=== PATIENT | female | born 1985 | race Caucasian/White ===

== ENCOUNTER 2016-09-08 08:14 | Emergency (ER) | payer MEDICAID ==
[~2016-09-08] VITALS: Wt 65.0 kg
[~2016-09-08 08:14] MED LIST: PREN1TAB49 PO
--- NOTE | 2016-09-08 09:24 | ERD ---
ER Documentation Chief Complaint Date/Time DATE: 09/08/16 TIME: 09:22 Chief Complaint 6 wks with vag bleed since this morning. mild cramping. no dysuria HPI 31-year-old female who is approximately 6 weeks is complaining of vaginal spotting this morning. She noticed blood while wiping after urination. The blood did not stain her underwear. Patient also reports left pelvic cramping since this morning. Patient is SAB 1 TAB 1, LMP 07/28/2016. Denies fever or chills. Denies dysuria. ROS All systems reviewed and are negative except as per history of present illness. Medications Home Meds Active Scripts Acetaminophen* (Tylophen*) 500 Mg Capsule, 1 CAP PO Q6H Y for PAIN AND OR ELEVATED TEMP, #20 CAP Prov:RAD SHANKS LABEL MAKER 09/08/16 Reported Medications Vits W-Ca,Fe,Fa(<1MG) () 1 Tab Tablet, 1 TAB PO DAILY 05/27/11 Allergies Allergies: Coded Allergies: No Known Allergy (Unverified , 05/27/11) PMhx/Soc History of Surgery: Yes (C SECTION X1) Anesthesia Reaction: No Hx Neurological Disorder: No Hx Respiratory Disorders: No Hx Cardiac Disorders: No Hx Psychiatric Problems: No Hx Miscellaneous Medical Probl: No Hx Alcohol Use: No Hx Substance Use: No Hx Tobacco Use: No Smoking Status: Never smoker Physical Exam Vitals Vital Signs Date Time Temp Pulse Resp B/P Pulse Ox O2 Delivery O2 Flow Rate FiO2 09/08/16 08:16 98.4 98 21 121/68 98 Physical Exam General impression: Well-developed, well-nourished. Alert, oriented, in no acute distress Head: Normocephalic, atraumatic. Neck: Supple, nontender. No lymphadenopathy. No nuchal rigidity. Respiration: Normal respiratory effort. Lungs clear to auscultate bilaterally. No wheezes, rales or rhonchi. Cardiovascular: Regular rate and rhythm. No murmurs or extra heart sounds. Abdomen: Abdomen normal to inspection. Left pelvic tenderness, no rebound or guarding. No masses or organomegaly. Bowel sounds normal. Back: Normal to inspection. No midline spine tenderness. No CVA tenderness. Neuro: Mental status normal, speech normal. BUILDING AND CONSTRUCTION MANAGER grossly intact. Skin: Normal turgor. No rash or lesions. Psych: Normal mood and affect. Result Diagram: 09/08/16 0925 Results 24 hrs Laboratory Tests Test 09/08/16 09:25 Basophils # 0.010^3/ul Basophils % 0.4% Beta HCG, Quantitative 73023.0mIU/ml Eosinophils # 0.010^3/ul Eosinophils % 0.2% Hematocrit 42.4% Hemoglobin 14.5g/dl Lymphocytes # 1.810^3/ul Lymphocytes % 22.5% Mean Corpuscular Hemoglobin 31.5pg Mean Corpuscular Hemoglobin Concent 34.2g/dl Mean Corpuscular Volume 92.0fl Mean Platelet Volume 10.3fl Monocytes # 0.410^3/ul Monocytes % 5.0% Neutrophils # 5.910^3/ul Neutrophils % 71.7% Nucleated Red Blood Cells # 0.010^3/ul Nucleated Red Blood Cells % 0.0/100WBC Platelet Count 20796^3/UL Red Blood Count 4.6110^6/ul Red Cell Distribution Width 12.0% Urine Bilirubin NEGATIVE Urine Clarity CLEAR Urine Color LT. YELLOW Urine Glucose NEGATIVE% Urine Hemoglobin NEGATIVE Urine Ketones NEGATIVE Urine Leukocyte Esterase NEGATIVE Urine Nitrite NEGATIVE Urine Specific [place] 1.010 Urine Total Protein NEGATIVE Urine Urobilinogen 0.2 E.U./dL Urine pH 7.5 White Blood Count 8.210^3/ul Procedures/MDM ED course: CBC: Unremarkable Beta hC.0 UA: Negative Type & RH: O+ OB US: Single intrauterine with an estimated gestational age of 5 weeks and 6 days, based on ultrasound measurements. heart motion is noted, however it could not be measured at this early stage. Focal area of subchorionic hemorrhage. Medical Decision Making: Well-appearing 31-year-old female who is presented ED with vaginal spotting 1 day. Ultrasound showed normal intrauterine with heart motion noted. Gestational age is estimated at 5 weeks and 6 days based on size. Beta hCG quant is consistent with a gestational age. Blood type is O+ , no RhoGam is indicated. Likely her vaginal spotting is secondary to subchorionic hemorrhage noted on ultrasound. Low suspicion for threatened at this time. Patient has OB appointment in 2 weeks. Advised patient to follow-up with her OB sooner than that, however I do not feel that she needs repeat beta hCG in 2 days. I did inform patient to return to ED if she started having copious amount of vaginal bleeding with worsening pelvic pain. Patient appears well, stable for discharge and outpatient management. Medical decision making shared with patient and family. Education provided to patient and family. Patient and family expressed understanding of the plan. Medications on discharge: Tylenol. Follow-up: Primary care provider in 2-3 days or return to ED if worse. RAD SHANKS NP Sep 08, 2016 09:24
[2016-09-08 10:02] LABS: ADD SCAN DIFF NO
[2016-09-08 10:10] LABS: ADD UMIC NO; URINE BILIRUBIN (Dip) NEGATIVE (NEGATIVE); URINE BLOOD (Dip) NEGATIVE (NEGATIVE); URINE COLOR LT. YELLOW (YELLOW); URINE GLUCOSE (Dip) NEGATIVE (NEGATIVE); URINE KETONES (Dip) NEGATIVE (NEGATIVE); URINE LEUKOCYTE ESTERASE (Dip) NEGATIVE (NEGATIVE); URINE NITRITE (Dip) NEGATIVE (NEGATIVE); URINE TOTAL PROTEIN (Dip) NEGATIVE (NEGATIVE); URINE UROBILINOGEN (Dip) 0.2 E.U./dL (0.1-1.0)
--- NOTE | 2016-09-08 10:16 | RADRPT ---
PROCEDURE: US OB. CLINICAL INDICATION: Vaginal spotting TECHNIQUE: Transabdominal and transvaginal views of the pelvis were obtained. COMPARISON: No prior studies are available for comparison. FINDINGS: There is a single intrauterine gestation with a CRL measuring 0.3 cm, corresponding to a gestational age of 5 weeks and 6 days. heart motion is noted, however it could not be measured at this early stage. There is a hypoechoic fluid collection adjacent to the gestational sac, measuring 1.6 cm, consisten t with subchorionic hemorrhage. The right ovary measures 2.8 x 1.9 x 2.2 cm. The left ovary measures 3.5 x 2.7 x 2.6 cm. No ovarian or adnexal mass lesion is seen. There is no free fluid. RPTAT: AA IMPRESSION: Single intrauterine with an estimated gestational age of 5 weeks and 6 days, based on ultr asound measurements. heart motion is noted, however it could not be measured at this early st age. Focal area of subchorionic hemorrhage. Close follow-up is recommended. .Bakari Juárez MD, Date Time Electronically viewed and signed by .Bakari Juárez MD, on 09/08/2016 10:16 .S/
[2016-09-08 10:25] LABS: BASOPHILS % 0.4 % (0.0-2.0); EOSINOPHILS % 0.2 % (0.0-7.0); HEMATOCRIT 42.4 % (37.0-47.0); HEMOGLOBIN 14.5 g/dl (12.0-16.0); LYMPHOCYTES # 1.8 10^3/ul (0.8-2.9); LYMPHOCYTES % 22.5 % (15.0-51.0); MEAN CORPUSCULAR HEMOGLOBIN 31.5 pg (29.0-33.0); MEAN CORPUSCULAR HGB CONC 34.2 g/dl (32.0-37.0); MEAN PLATELET VOLUME 10.3 fl (7.4-10.4); MONOCYTE # 0.4 10^3/ul (0.3-0.9); NEUTROPHIL # 5.9 10^3/ul (1.6-7.5); NEUTROPHILS % 71.7 % (39.0-77.0); PLATELET COUNT 281 10^3/UL (140-415); RED BLOOD COUNT 4.61 10^6/ul (4.20-5.40); WHITE BLOOD COUNT 8.2 10^3/ul (4.8-10.8)
[2016-09-08] MEDS ORDERED: ACET500C5 PO (11:28)
[2016-09-08 11:40] VITALS: BP 128/68; PULSE 78; RESP 20; TEMP 98.2
== END 2016-09-08 11:42 | disposition home or self-care (01) ==
LOC: FTE 08:14
DX: O26.851 Spotting complicating pregnancy, first trimester (principal); R10.2 Pelvic and perineal pain; Z3A.01 Less than 8 weeks gestation of pregnancy
CPT/HCPCS: 36415; 76801; 76817; 81003; 84702; 85025; 86900; 86901; Z7502

== ENCOUNTER 2017-03-18 09:17 | Outpatient (CLI) | payer MEDICAID ==
[~2017-03-18] VITALS: Ht 154.9 cm; Wt 89.3 kg
[~2017-03-18 09:17] MED LIST changes: +ACET500C5 PO
[2017-03-18 09:27] VITALS: Ht 154.9 cm; Wt 89.3 kg
--- NOTE | 2017-03-18 09:31 | RADRPT ---
PROCEDURE: OB ultrasound for biophysical profile CLINICAL INDICATION: Decreased movement TECHNIQUE: Multiple sonographic images of the pelvis were obtained. Transabdominal view of the gr avid uterus are available for review. The images were reviewed on a PACS workstation. COMPARISON: Pelvic ultrasound 09/08/2016 FINDINGS: breathing movement = 2/2 tone = 2/2 motion = 2/2 ASTRID = 2/2 ASTRID = 13.4 cm Single live intrauterine with cardiac activity. heart rate equals 140 beats p er minute. Presentation is transverse maternal left. The placenta is posterior. IMPRESSION: 1. Single viable intrauterine gestation. 2. Biophysical profile = 8/8. 3. ASTRID = 13.3 cm. RPTAT: HJBF .Pal Thomas MD, MD Date Time Electronically viewed and signed by .Pal Thomas MD, MD on 03/18/2017 09:31 .B/
--- NOTE | 2017-03-18 09:49 | HP ---
Date/Time of Note Date/Time of Note DATE: 03/18/17 TIME: 09:46 OB - History Hx of Present Free Text/Dictation 31 year old G2, P 1, previous comes in complaining of decreased movements since last night.Denies contractions or passage of fluid per vagina. Chief Complaint: Decreased movements Estimated Due Date: May 10, 2017 : 2 Para: 1 Care: Good Care Ultrasounds: Normal mid trimester US Obstetrical Complications: None Medical Complications: None (Decreased movements since last night,NST is reactive and BPP is 8/8) Past Family/Social History * Past Medical, Surgical, Family and Obstetric Histories reviewed from chart. ASAEL DOZIER MD Mar 18, 2017 09:49
--- NOTE | 2017-03-18 10:01 | TRIAGE ---
OB Triage Datetime Report Generated by CPN: 03/18/2017 10:01 Datetime: 03/18/2017 09:26 Time of Arrival: 03/18/2017 09:05 EGA: 33.3 Arrived By: Wheelchair Arrived From: Emergency Dept Chief Complaint: Decreased movement Movement: Decreased Contractions: Denies/Absent Rupture of Membranes: Denies Vaginal Bleeding: Normal Show Vaginal Discharge: Denies Recent Sexual Intercouse: Denies Abdominal Trauma: Not Applicable Patient Complaints: None Time Provider Notified: 03/18/2017 09:36 Provider Notified: Fred Initial Plan: NST, BPP Datetime: 03/18/2017 09:25 Assessment Type: Triage Maternal Assessment Level of Consciousness: Fully Conscious DTR's/Clonus: DTRs 2+; No Clonus Headache: Denies Blurred Vision: No Respiratory Effort: Unlabored; Regular Rhythm; Equal Expansion Breath Sounds, Left: Clear and Equal Breath Sounds, Right: Clear and Equal Nausea/Vomiting: Denies RUQ Epigastric Pain: Denies Lower Extremities Edema: Bilateral Lower Extremities Degree: 1+ Upper Extremities Edema: None Degree: None Facial Edema: None Fall Risk Assessment History of Falling: (0) No Secondary Diagnosis: (0) No Ambulatory Aid: (0) Bedrest/Nurse Assist IV Therapy: (0) No Gait: (0) Normal/Bedrest/Immobile Mental Status: (0) Oriented to Own Ability Fall Score: 0 Fall Risk Score Definition: No Risk: No action required
== END 2017-03-18 09:45 | disposition home or self-care (01) ==
LOC: OBT 09:17 → L-D 09:17 → OBT 09:45
PROVIDERS: ATTEND Specialist
DX: O36.8130 Decreased fetal movements, third trimester, not applicable or unspecified (principal); Z3A.33 33 weeks gestation of pregnancy
CPT/HCPCS: 76818; Z7500; G0463

== ENCOUNTER 2017-04-13 19:50 | Outpatient (CLI) | payer MEDICAID ==
[~2017-04-13] VITALS: Ht 154.9 cm; Wt 91.4 kg
[2017-04-13 20:15] VITALS: BP 109/59; PULSE 90; RESP 18; Ht 154.9 cm; Wt 91.4 kg
[2017-04-13] MEDS ORDERED: LACTATED RINGER'S 500 ML IV ONE (20:30)
[2017-04-13] MEDS ORDERED: LACTATED RINGER'S 1,000 ML IV SCH (21:10)
[2017-04-13 22:11] LABS: ADD UMIC NO; UR ASCORBIC ACID NEGATIVE (NEGATIVE); UR BACTERIA FEW /HPF (NONE SEEN); UR BILIRUBIN (Dip) NEGATIVE (NEGATIVE); UR BLOOD (Dip) NEGATIVE (NEGATIVE); UR CLARITY SLIGHTLY CLOUDY (CLEAR); UR COLOR YELLOW (YELLOW); UR GLUCOSE (Dip) NEGATIVE (NEGATIVE); UR KETONES (Dip) TRACE mg/dL (NEGATIVE); UR LEUKOCYTE ESTERASE (Dip) NEGATIVE Leu/ul (NEGATIVE); UR MUCUS FEW /HPF (NONE SEEN); UR NITRITE (Dip) NEGATIVE (NEGATIVE); UR RBC 1 /HPF (0-5); UR SPECIFIC GRAVITY (Dip) 1.018 (1.003-1.030); UR SQUAMOUS EPITHELIAL CELL FEW /HPF (FEW); UR TOTAL PROTEIN (Dip) NEGATIVE (NEGATIVE); UR UROBILINOGEN (Dip) 1+ mg/dL (NEGATIVE)
--- NOTE | 2017-04-13 22:22 | RADRPT ---
PROCEDURE: US biophysical profile. CLINICAL INDICATION: Decreased motion. TECHNIQUE: Multiple sonographic images of the uterus were obtained. The images were revi ewed on a PACS workstation. COMPARISON: 03/18/2017. FINDINGS: There is a single live intrauterine gestation. heart rate is 144 beats per minute. The position is cephalic. The placenta is posterior grade II with no abruption or previa. The ASTRID is 16.8 cm. (Normal = 5-20 cm.) Incidental note is made of mild left hydronephrosis. Breathing Movement: 2 Gross Body Movement: 2 Tone: 2 Qualitative Amniotic Fluid Volume: 2 TOTAL: 8 IMPRESSION: 1. The biophysical score is 8/8. 2. Mild left hydronephrosis. Follow-up advised. RPTAT: QQ .Lobo Cabrera MD, MD Date Time Electronically viewed and signed by .Lobo Cabrera MD, on 04/13/2017 22:22 .R/
[2017-04-13] MEDS ORDERED: TERBUTALINE 1 MG/ML INJ SC PRN (23:30)
--- NOTE | 2017-04-14 00:51 | TRIAGE ---
OB Triage Datetime Report Generated by CPN: 04/14/2017 00:51 Datetime: 04/14/2017 00:47 Stage of : OB Triage Datetime: 04/14/2017 00:00 Labor Evaluation Frequency: irregular Monitor Mode: External Duration (sec)2399: 50-120 Quality: Mild Pattern: Normal: <= 5 Contractions in 10 Minutes Resting Tone [place]: Relaxed Heart Rate FHR Baseline Rate: 120 Monitor Mode: External US FHR Baseline Changes: No Baseline Change Variability: Moderate 6-25 bpm Accelerations: 15X15 Decelerations: None Category: Category I Pain Assessment Pain Scale: 5 Pain Presence: Intermittent Pain Type: Contraction Pain Location: Abdomen Pain Relief Measures: Comfort Measures Datetime: 04/13/2017 23:00 Labor Evaluation Frequency: irregular Monitor Mode: External Duration (sec)2399: 50-100 Quality: Mild Pattern: Normal: <= 5 Contractions in 10 Minutes Resting Tone [place]: Relaxed Heart Rate FHR Baseline Rate: 120 Monitor Mode: External US FHR Baseline Changes: No Baseline Change Variability: Moderate 6-25 bpm Accelerations: 15X15 Decelerations: None Category: Category I Datetime: 04/13/2017 22:47 Pain Assessment Pain Scale: 6 Pain Presence: Intermittent Pain Type: Contraction Pain Location: Abdomen Pain Relief Measures: Comfort Measures Vaginal Exam Dilatation (cms): 0.0 Effacement (%): 30 Station: -3 Exam By: fdc Datetime: 04/13/2017 21:35 Labor Evaluation Frequency: 3-6 Monitor Mode: External Duration (sec)2399: 60-120 Quality: Mild Pattern: Normal: <= 5 Contractions in 10 Minutes Resting Tone [place]: Relaxed Heart Rate FHR Baseline Rate: 135 Monitor Mode: External US FHR Baseline Changes: No Baseline Change Variability: Moderate 6-25 bpm Accelerations: 15X15 Decelerations: Variable Category: Category II Datetime: 04/13/2017 21:00 Labor Evaluation Frequency: 2.5-5 Monitor Mode: External Duration (sec)2399: 70-120 Quality: Mild Pattern: Normal: <= 5 Contractions in 10 Minutes Resting Tone [place]: Relaxed Heart Rate FHR Baseline Rate: 120 Monitor Mode: External US FHR Baseline Changes: No Baseline Change Variability: Moderate 6-25 bpm Accelerations: 15X15 Decelerations: Variable Category: Category II Datetime: 04/13/2017 20:10 Vaginal Exam Dilatation (cms): 0.0 Effacement (%): 30 Station: -3 Exam By: CORRECTION Membrane Status: Intact Datetime: 04/13/2017 20:03 Assessment Type: Triage Maternal Assessment Level of Consciousness: Fully Conscious Headache: Denies Blurred Vision: No Respiratory Effort: Unlabored; Regular Rhythm; Equal Expansion Nausea/Vomiting: Denies RUQ Epigastric Pain: Denies Facial Edema: None Fall Risk Assessment History of Falling: (0) No Secondary Diagnosis: (0) No Ambulatory Aid: (0) Bedrest/Nurse Assist IV Therapy: (0) No Gait: (0) Normal/Bedrest/Immobile Mental Status: (0) Oriented to Own Ability Fall Score: 0 Fall Risk Score Definition: No Risk: No action required Datetime: 04/13/2017 20:00 Temperature Route: Oral Pain Assessment Pain Scale: 4 Pain Presence: Intermittent Pain Type: Contraction Pain Location: Abdomen Pain Relief Measures: Comfort Measures Datetime: 04/13/2017 19:57 Monitor Mode: External Heart Rate FHR Baseline Rate: 120 Monitor Mode: External US Comments: US APPLIED Datetime: 04/13/2017 19:54 Time of Arrival: 04/13/2017 19:49 EGA: 37.1 Arrived By: Ambulatory Arrived From: Home Chief Complaint: PAIN, VAGINAL PRESSURE, DECREASED MOVEMENT, UCS Movement: Decreased Contractions: Regular Contractions: 3-5 Rupture of Membranes: Denies Vaginal Bleeding: None Vaginal Discharge: Denies Recent Sexual Intercouse: Denies Abdominal Trauma: Not Applicable Patient Complaints: Contractions; Back Pain Time Provider Notified: 04/13/2017 20:23 Provider Notified: ELSY Initial Plan: VS, EFM, SVE, IV HYDRATION, BPP WITH ASTRID, UA, TERB Datetime: 03/18/2017 09:38 Monitor Mode: External Resting Tone [place]: Relaxed Heart Rate FHR Baseline Rate: 135 Monitor Mode: External US FHR Baseline Changes: No Baseline Change Variability: Moderate 6-25 bpm Accelerations: 15X15 Decelerations: None Category: Category I Datetime: 03/18/2017 09:26 EGA: 33.3 Datetime: 03/18/2017 09:25 Fall Score: 0 Fall Risk Score Definition: No Risk: No action required Datetime: 03/18/2017 09:15 Stage of : OB Triage Temperature Route: Oral
--- NOTE | 2017-04-14 03:52 | PN ---
Triage Information Date/Time April 13, 2017 Reason for visit: DFM Weeks of Gestation 37 weeks and 1 day /Para 4 para 1 Diabetes: none Hypertention: none Additional information 31-year-old with IUP at 37 weeks and 1 day presented with a complaint of decreased movement and was noted to have some uterine contractions. She denied any vaginal bleeding. Had a history of 1. Cervix was closed and long. Objective Vital Signs Date Time Temp Pulse Resp B/P Pulse Ox O2 Delivery O2 Flow Rate FiO2 04/13/17 20:15 97.8 90 18 109/59 Room Air Intake and Output 04/13/17 04/13/17 04/14/17 15:00 23:00 07:00 Intake Total 500 ml 1000 ml Output Total 200 ml Balance 500 ml 800 ml Heart Rate: 130's Contractions: < 5 Minutes Apart Exam General appearance: Alert and oriented 4. Patient appears to be in mild distress. Abdomen: Soft, gravid, fundal height consistent with gestational age NST: Category 1 Contractions every 4-5 minutes. Resolved with terbutaline and IV hydration Cervical exam closed and long and high intact Results/Medications Results 24 hrs Laboratory Tests Test 04/13/17 21:25 Urine Color YELLOW Urine Clarity SLIGHTLY CLOUDY A Urine pH 6.0 Urine Specific [place] 1.018 Urine Ketones TRACE A Urine Nitrite NEGATIVE Urine Bilirubin NEGATIVE Urine Urobilinogen 1+ H Urine Leukocyte Esterase NEGATIVE Urine Microscopic RBC 1 Urine Microscopic WBC 3 Urine Squamous Epithelial Cells FEW Urine Calcium Oxalate Crystals FEW A Urine Bacteria FEW A Urine Mucus FEW A Urine Hemoglobin NEGATIVE Urine Glucose NEGATIVE Urine Total Protein NEGATIVE Imaging Results PROCEDURE: US biophysical profile. CLINICAL INDICATION: Decreased motion. TECHNIQUE: Multiple sonographic images of the uterus were obtained. The images were reviewed on a PACS workstation. COMPARISON: 03/18/2017. FINDINGS: There is a single live intrauterine gestation. heart rate is 144 beats per minute. The position is cephalic. The placenta is posterior grade II with no abruption or previa. The ASTRID is 16.8 cm. (Normal = 5-20 cm.) Incidental note is made of mild left hydronephrosis. Breathing Movement: 2 Gross Body Movement: 2 Tone: 2 Qualitative Amniotic Fluid Volume: 2 TOTAL: 8 IMPRESSION: 1. The biophysical score is 8/8. 2. Mild left hydronephrosis. Follow-up advised. RPTAT: QQ Disposition: Discharge Assessment/Plan IUP at 37 weeks Decreased movement Anesthesia/pain. Shortening History of 1 False labor pain Resolved with IV hydration and terbutaline Patient felt significant improvement of her symptoms Will be discharged home with a follow-up within 24-48 hours with her primary OB HERMES BRISCOE MD Apr 14, 2017 03:52
== END 2017-04-14 01:25 | disposition home or self-care (01) ==
LOC: OBT 19:50 → L-D 19:52 → OBT 04-14 01:25
PROVIDERS: ATTEND Specialist
DX: O36.8130 Decreased fetal movements, third trimester, not applicable or unspecified (principal); O34.219 Maternal care for unspecified type scar from previous cesarean delivery; Z3A.37 37 weeks gestation of pregnancy
CPT/HCPCS: 76818; 81001; J3105; J7120; Z7500; 81003; G0463

== ENCOUNTER 2017-04-26 05:52 | Inpatient (IN) | payer MEDICAID ==
[2017-04-26] VITALS: BP 101/51; PULSE 89; RESP 18
--- NOTE | 2017-04-26 02:47 | PREOPHP ---
DATE OF ADMISSION: 04/26/2017 REASON FOR ADMISSION: The patient is to be admitted tomorrow for repeat at term. HISTORY OF PRESENT ILLNESS: This is a 31-year-old female, 4, para 1 with a history of previ ous section whose EDC has been confirmed by ultrasounds to be 05/03/2017, who was admitted for a repeat at term. She also desires sterilization during the same procedure. Both pro cedures were carefully explained to the patient at great length in the office including alternatives , benefits, risks, and possible complications as well as 1% failure rate of the tubal ligation. She was allowed to ask questions and all of her questions were answered to her satisfaction, and she si gned the appropriate surgical informed consents. PAST MEDICAL HISTORY: The patient has been 4 times. Her first was a miscarriage in 2014, spontaneous . In 2014, she had a termination for conjoined twins. In 2005, the p scarlet had an only child that was born at 42 weeks, a baby boy that weighed 9 pounds 15 ounces to [facility] by section. She denies any medical problems including diabetes, hypertension, cardiac disease, liver disease, thyroid disease, or neurological problems. ALLERGIES: NO KNOWN ALLERGIES. MEDICATIONS: Has been taking only vitamins on a regular basis. FAMILY HISTORY: Noncontributory. REVIEW OF SYSTEMS: A 12-point review of systems is noncontributory. PHYSICAL EXAMINATION: GENERAL: Well-developed and nourished. Height is 5 feet 1 inch weight is 205 pounds. VITAL SIGNS: Showed the temperature to be 98, blood pressure 111/65, pulse is 80/minute (regular). Temperature is 98 degrees. HEENT: Within normal limits. Pupils are PERRLA. NECK: Supple. The thyroid is not palpable. No lymphadenopathy. LUNGS: Clear to percussion and auscultation. HEART: Revealed normal sinus rhythm without murmur. ABDOMEN: Soft. There are no megalies or hernias. Uterus enlarged up to 37 cm above the pubic bone , single baby, longitudinal lie, cephalic presentation. heart rate is category 1. PELVIC: Normal external genitalia. Cervix is long and closed. Membranes are intact. EXTREMITIES: Within normal limits. NEUROLOGIC: Also normal. IMPRESSION: 1. Term intrauterine . 2. Previous section. 3. Multiparity. The patient desires sterilization. Dictated By: ASAEL DOZEIR MD CR/DANTE Conf#: [id number] DID#: [id number] CC: ELSY TOTH MD;*End*
--- NOTE | 2017-04-26 02:47 | PREOPHP ---
DATE OF ADMISSION: 04/26/2017 REASON FOR ADMISSION: The patient is to be admitted tomorrow for repeat at term. HISTORY OF PRESENT ILLNESS: This is a 31-year-old female, 4, para 1 with a history of previ ous section whose EDC has been confirmed by ultrasounds to be 05/03/2017, who was admitted for a repeat at term. She also desires sterilization during the same procedure. Both pro cedures were carefully explained to the patient at great length in the office including alternatives , benefits, risks, and possible complications as well as 1% failure rate of the tubal ligation. She was allowed to ask questions and all of her questions were answered to her satisfaction, and she si gned the appropriate surgical informed consents. PAST MEDICAL HISTORY: The patient has been 4 times. Her first was a miscarriage in 2014, spontaneous . In 2014, she had a termination for conjoined twins. In 2005, the p scarlet had an only child that was born at 42 weeks, a baby boy that weighed 9 pounds 15 ounces to [facility] by section. She denies any medical problems including diabetes, hypertension, cardiac disease, liver disease, thyroid disease, or neurological problems. ALLERGIES: NO KNOWN ALLERGIES. MEDICATIONS: Has been taking only vitamins on a regular basis. FAMILY HISTORY: Noncontributory. REVIEW OF SYSTEMS: A 12-point review of systems is noncontributory. PHYSICAL EXAMINATION: GENERAL: Well-developed and nourished. Height is 5 feet 1 inch weight is 205 pounds. VITAL SIGNS: Showed the temperature to be 98, blood pressure 111/65, pulse is 80/minute (regular). Temperature is 98 degrees. HEENT: Within normal limits. Pupils are PERRLA. NECK: Supple. The thyroid is not palpable. No lymphadenopathy. LUNGS: Clear to percussion and auscultation. HEART: Revealed normal sinus rhythm without murmur. ABDOMEN: Soft. There are no megalies or hernias. Uterus enlarged up to 37 cm above the pubic bone , single baby, longitudinal lie, cephalic presentation. heart rate is category 1. PELVIC: Normal external genitalia. Cervix is long and closed. Membranes are intact. EXTREMITIES: Within normal limits. NEUROLOGIC: Also normal. IMPRESSION: 1. Term intrauterine . 2. Previous section. 3. Multiparity. The patient desires sterilization. Dictated By: ASAEL DOZIER MD CR/DANTE Conf#: [id number] DID#: [id number] CC: ELSY TOTH MD;*End*
[~2017-04-26 05:52] MED LIST changes: -ACET500C5 PO
[2017-04-26 06:12] VITALS: BP 119/64; PULSE 96; RESP 18
[2017-04-26] MEDS ORDERED: OXYTOCIN 30 UNITS/LR 500 ML IV SCH (06:30)
[2017-04-26] MEDS ORDERED: MISOPROSTOL 200 MCG TAB PR PRN ×2 (06:30→09:30)
[2017-04-26] MEDS ORDERED: CARBOPROST 250 MCG INJ IM PRN ×2 (06:30→09:30)
[2017-04-26] MEDS ORDERED: OXYTOCIN 30 UNITS/LR 500 ML IV PRN ×2 (06:30→09:30)
[2017-04-26] MEDS ORDERED: CEFAZOLIN 2 GM/50 ML (PMX) 50 ML IV SCH (06:30)
[2017-04-26] MEDS ORDERED: METHYLERGONOVINE 0.2 MG INJ IM PRN ×2 (06:30→09:30)
[2017-04-26] MEDS: LACTATED RINGER'S 1,000 ML IV SCH ×4 (06:49→20:14)
[2017-04-26] MEDS ORDERED: morphine SULFATE/PF (10 MG/10 ML) INJ ONE (08:16)
[2017-04-26] MEDS ORDERED: FENTAnyl 50 MCG/ML VIAL ONE (08:17)
[2017-04-26] MEDS ORDERED: PHENYLephrine (100 MCG/ML) 5ML SYG ONE (08:26)
[2017-04-26] MEDS ORDERED: DEXAMETHASONE 4 MG/ML 1 ML INJ ONE (08:32)
[2017-04-26] MEDS ORDERED: ONDANSETRON 4 MG INJ ONE (08:58)
[2017-04-26] MEDS ORDERED: morphine 4 MG/ML VIAL IV PRN (09:30)
[2017-04-26] MEDS ORDERED: CEFAZOLIN 2 GM/50 ML (PMX) 50 ML IVPB SCH (09:30)
[2017-04-26] MEDS ORDERED: ONDANSETRON 4 MG INJ IV PRN (09:30)
[2017-04-26] MEDS ORDERED: KETOROLAC 30 MG INJ IV PRN (09:30)
[2017-04-26] MEDS ORDERED: NALOXONE (0.4 MG/ML) INJ IV PRN (09:30)
[2017-04-26] MEDS ORDERED: LANOLIN 7 GM TUBE TOP PRN (09:30)
[2017-04-26] MEDS ORDERED: HYDROCODONE/APAP (5/325) TAB PO PRN (09:30)
[2017-04-26] MEDS ORDERED: DIPHENHYDRAMINE 50 MG INJ IV PRN (09:30)
[2017-04-26] MEDS ORDERED: ZOLPIDEM 5 MG TAB PO PRN (09:30)
[2017-04-26] MEDS ORDERED: morphine 2 MG INJ IV PRN (09:30)
--- NOTE | 2017-04-26 09:32 | SIPON ---
Date/Time of Note Date/Time of Note See dictated note DATE: 04/26/17 TIME: 09:29 Operative Report Preoperative Diagnosis 39 weeks gestation.Previous .Multiparity Postoperative Diagnosis Same. Operation/Procedure Performed Repeat and BTL. Surgeon Dr.Carlos Kevin Ibarra tutoring assistant MD Mary Anesthesia: spinal Estimated blood loss: other Transfusion Required none Specimen Portion of fallopian tubes. Grafts/Implants none Complications none ASAEL IBARRA MD Apr 26, 2017 09:32
--- NOTE | 2017-04-26 09:32 | SIPON ---
Date/Time of Note Date/Time of Note See dictated note DATE: 04/26/17 TIME: 09:29 Operative Report Preoperative Diagnosis 39 weeks gestation.Previous .Multiparity Postoperative Diagnosis Same. Operation/Procedure Performed Repeat and BTL. Surgeon Dr.Carlos Kevin Ibarra optical assistant MD Mary Anesthesia: spinal Estimated blood loss: other Transfusion Required none Specimen Portion of fallopian tubes. Grafts/Implants none Complications none ASAEL IBARRA MD Apr 26, 2017 09:32
--- NOTE | 2017-04-26 09:32 | SIPON ---
Date/Time of Note Date/Time of Note See dictated note DATE: 04/26/17 TIME: 09:29 Operative Report Preoperative Diagnosis 39 weeks gestation.Previous .Multiparity Postoperative Diagnosis Same. Operation/Procedure Performed Repeat and BTL. Surgeon Dr.Carlos Kevin Ibarra diagnostic assistant MD Mary Anesthesia: spinal Estimated blood loss: other Transfusion Required none Specimen Portion of fallopian tubes. Grafts/Implants none Complications none ASAEL IBARRA MD Apr 26, 2017 09:32
--- NOTE | 2017-04-26 09:57 | OPR ---
DATE OF OPERATION: 04/26/2017 PREOPERATIVE DIAGNOSES: 1. Thirty-nine weeks' gestation. 2. Previous section x1. 3. The patient desires sterilization. 4. Baby was also breech. POSTOPERATIVE DIAGNOSES: 1. Thirty-nine weeks' gestation. 2. Previous section x1. 3. The patient desires sterilization. 4. Baby was also breech. FINDINGS: Baby boy, Apgars scores of 9 and 9. PROCEDURE: Repeat low segment transverse section and bilateral tubal ligation. SURGEON: Asael Ibarra MD. FULL STACK SOFTWARE DEVELOPER: Ashanti Mcdonald MD. ANESTHESIOLOGIST: eva Mei. ESTIMATED BLOOD LOSS: 800 mL. COMPLICATIONS: None. SPECIMENS: Portions of the fallopian tubes were sent to pathology. PROCEDURE AND FINDINGS: With the patient under spinal anesthesia, lying on the table in the dorsal recumbent position, tilted to the left side. She had a Arredondo catheter draining her bladder. Her ab domen and upper thighs were prepped with ChloraPrep and draped in the usual sterile fashion after 3 minutes. A Pfannenstiel incision was carried through all layers of abdominal wall with ease. Once in the abdomen, the uterine segment was opened transversely and a living male child was delivered fr om double footling breech presentation. Baby was handed to the respiratory team instructional paraprofessional who found h im to have scores of 9 at first minute and 9 at five minutes. Sample cord blood was obtained. The placenta was delivered. The uterine cavity cleaned with a clean moist laparotomy pad. Incisi on of the uterus was closed with a continuous running stitch of 0 PDS in a double layer fashion. Go od hemostasis obtained. The tubal ligation was carried out starting on the right side, picking the tube in its mid portion with a [place] clamp and tying it on its base twice with 0 plain catgut. A portion of tube was cut and sent to pathology. The same was repeated on the lateral side. The pelv is was thoroughly cleaned with clean moist laparotomy pads. The operative sites were checked for bl eeders, there were none. Then, the abdomen was closed in layers starting with the muscles in the mi dline approximated with 2-0 chromic catgut. The fascia was closed with a continuous running stitch of 0 Vicryl. Finally, the edges of the skin were brought together with subcuticular 4-0 Monocryl. Sterile pressure dressing was applied and the patient was taken to recovery room with all vital sign s stable. EBL was 800 mL of blood. Needle, sponge and instrument count at the end of the procedure was correct twice. Dictated By: ASAEL IBARRA MD CR/NTS Conf#: [id number] DID#: [id number] CC: ASHANTI MCDONALD MD;*EndCC*
--- NOTE | 2017-04-26 09:57 | OPR ---
DATE OF OPERATION: 04/26/2017 PREOPERATIVE DIAGNOSES: 1. Thirty-nine weeks' gestation. 2. Previous section x1. 3. The patient desires sterilization. 4. Baby was also breech. POSTOPERATIVE DIAGNOSES: 1. Thirty-nine weeks' gestation. 2. Previous section x1. 3. The patient desires sterilization. 4. Baby was also breech. FINDINGS: Baby boy, Apgars scores of 9 and 9. PROCEDURE: Repeat low segment transverse section and bilateral tubal ligation. SURGEON: Asael Ibarra MD. PAYROLL LEAD: Ashanti Mcdonald MD. ANESTHESIOLOGIST: eva Mei. ESTIMATED BLOOD LOSS: 800 mL. COMPLICATIONS: None. SPECIMENS: Portions of the fallopian tubes were sent to pathology. PROCEDURE AND FINDINGS: With the patient under spinal anesthesia, lying on the table in the dorsal recumbent position, tilted to the left side. She had a Arredondo catheter draining her bladder. Her ab domen and upper thighs were prepped with ChloraPrep and draped in the usual sterile fashion after 3 minutes. A Pfannenstiel incision was carried through all layers of abdominal wall with ease. Once in the abdomen, the uterine segment was opened transversely and a living male child was delivered fr om double footling breech presentation. Baby was handed to the respiratory team store operations associate who found h im to have scores of 9 at first minute and 9 at five minutes. Sample cord blood was obtained. The placenta was delivered. The uterine cavity cleaned with a clean moist laparotomy pad. Incisi on of the uterus was closed with a continuous running stitch of 0 PDS in a double layer fashion. Go od hemostasis obtained. The tubal ligation was carried out starting on the right side, picking the tube in its mid portion with a [place] clamp and tying it on its base twice with 0 plain catgut. A portion of tube was cut and sent to pathology. The same was repeated on the lateral side. The pelv is was thoroughly cleaned with clean moist laparotomy pads. The operative sites were checked for bl eeders, there were none. Then, the abdomen was closed in layers starting with the muscles in the mi dline approximated with 2-0 chromic catgut. The fascia was closed with a continuous running stitch of 0 Vicryl. Finally, the edges of the skin were brought together with subcuticular 4-0 Monocryl. Sterile pressure dressing was applied and the patient was taken to recovery room with all vital sign s stable. EBL was 800 mL of blood. Needle, sponge and instrument count at the end of the procedure was correct twice. Dictated By: ASAEL IBARRA MD CR/NTS Conf#: [id number] DID#: [id number] CC: ASHANTI MCDONALD MD;*EndCC*
--- NOTE | 2017-04-26 09:57 | OPR ---
DATE OF OPERATION: 04/26/2017 PREOPERATIVE DIAGNOSES: 1. Thirty-nine weeks' gestation. 2. Previous section x1. 3. The patient desires sterilization. 4. Baby was also breech. POSTOPERATIVE DIAGNOSES: 1. Thirty-nine weeks' gestation. 2. Previous section x1. 3. The patient desires sterilization. 4. Baby was also breech. FINDINGS: Baby boy, Apgars scores of 9 and 9. PROCEDURE: Repeat low segment transverse section and bilateral tubal ligation. SURGEON: Asael Ibarra MD. BOX BUILDER: Ashanti Mcdonald MD. ANESTHESIOLOGIST: eva Mei. ESTIMATED BLOOD LOSS: 800 mL. COMPLICATIONS: None. SPECIMENS: Portions of the fallopian tubes were sent to pathology. PROCEDURE AND FINDINGS: With the patient under spinal anesthesia, lying on the table in the dorsal recumbent position, tilted to the left side. She had a Arredondo catheter draining her bladder. Her ab domen and upper thighs were prepped with ChloraPrep and draped in the usual sterile fashion after 3 minutes. A Pfannenstiel incision was carried through all layers of abdominal wall with ease. Once in the abdomen, the uterine segment was opened transversely and a living male child was delivered fr om double footling breech presentation. Baby was handed to the respiratory team assistant education director who found h im to have scores of 9 at first minute and 9 at five minutes. Sample cord blood was obtained. The placenta was delivered. The uterine cavity cleaned with a clean moist laparotomy pad. Incisi on of the uterus was closed with a continuous running stitch of 0 PDS in a double layer fashion. Go od hemostasis obtained. The tubal ligation was carried out starting on the right side, picking the tube in its mid portion with a [place] clamp and tying it on its base twice with 0 plain catgut. A portion of tube was cut and sent to pathology. The same was repeated on the lateral side. The pelv is was thoroughly cleaned with clean moist laparotomy pads. The operative sites were checked for bl eeders, there were none. Then, the abdomen was closed in layers starting with the muscles in the mi dline approximated with 2-0 chromic catgut. The fascia was closed with a continuous running stitch of 0 Vicryl. Finally, the edges of the skin were brought together with subcuticular 4-0 Monocryl. Sterile pressure dressing was applied and the patient was taken to recovery room with all vital sign s stable. EBL was 800 mL of blood. Needle, sponge and instrument count at the end of the procedure was correct twice. Dictated By: ASAEL IBARRA MD CR/NTS Conf#: [id number] DID#: [id number] CC: ASHANTI MCDONALD MD;*EndCC*
[2017-04-26 12:20] VITALS: BP 121/65; PULSE 86; RESP 17
[2017-04-26] MEDS: IBUPROFEN 800 MG TAB PO SCH ×2 (14:00→22:00)
[2017-04-26 16:00] VITALS: BP 113/53; PULSE 96; RESP 17
[2017-04-26] MEDS: CEFAZOLIN 2 GM/50 ML (PMX) 50 ML IVPB SCH ×2 (17:11→23:32)
[2017-04-26 20:00] VITALS: BP 105/53; PULSE 97; RESP 18
[2017-04-26] MEDS: SENNA/DOCUSATE NA (8.6MG/50MG) TAB PO SCH (21:06)
[2017-04-27 04:00] VITALS: BP 111/56; PULSE 97; RESP 18
[2017-04-27] MEDS: LACTATED RINGER'S 1,000 ML IV SCH ×3 (05:04→17:26)
[2017-04-27] MEDS: IBUPROFEN 800 MG TAB PO SCH ×3 (06:00→21:19)
[2017-04-27] MEDS: CEFAZOLIN 2 GM/50 ML (PMX) 50 ML IVPB SCH (07:53)
[2017-04-27 07:55] VITALS: BP 103/57; PULSE 86; RESP 18
--- NOTE | 2017-04-27 08:31 | PN ---
Date/Time of Note Date/Time of Note DATE: 04/27/17 TIME: 08:28 OB Subjective Subjective Subjective Doing well,sitting up nursing.Good pain control. OB Objective Objective Objective Afebrile,normal BP.Good output.CBC pending. Lochia normal.Abdomen soft,dressing intact. HEENT: WNL Heart: Rhythm Normal Lungs: Clear, Equal Abdomen: WNL Extremities: Normal ASAEL DOZIER MD Apr 27, 2017 08:31
[2017-04-27] MEDS: SENNA/DOCUSATE NA (8.6MG/50MG) TAB PO SCH ×2 (09:28→21:19)
[2017-04-27 16:25] VITALS: BP 110/58; PULSE 85; RESP 18
[2017-04-27 20:17] VITALS: BP 94/52; PULSE 87; RESP 18
[2017-04-28 04:00] VITALS: BP 97/56; PULSE 80; RESP 18
[2017-04-28] MEDS: IBUPROFEN 800 MG TAB PO SCH ×3 (05:18→20:20)
--- NOTE | 2017-04-28 08:41 | PN ---
Date/Time of Note Date/Time of Note DATE: 04/28/17 TIME: 08:37 OB Subjective Subjective Subjective Doing well,ambulatory.Passes gases. OB Objective Objective Objective Lochia normal.Shower yesterday.Incision healing well HEENT: WNL Heart: Rhythm Normal Lungs: Clear Abdomen: WNL Extremities: Normal ASAEL DOZIER MD Apr 28, 2017 08:41
[2017-04-28 08:45] VITALS: BP 113/59; RESP 82
[2017-04-28] MEDS ORDERED: MEASLES,MUMPS,RUBELLA VACCINE INJ SC* ONE (09:00)
[2017-04-28] MEDS: SENNA/DOCUSATE NA (8.6MG/50MG) TAB PO SCH ×2 (09:16→20:39)
[2017-04-28] MEDS: HYDROCODONE/APAP (5/325) TAB PO PRN ×2 (12:10→22:06)
[2017-04-28 16:25] VITALS: BP 106/67; PULSE 87; RESP 18
[2017-04-28 19:45] VITALS: BP 113/61; PULSE 86; RESP 18
[2017-04-29 04:00] VITALS: BP 116/68; PULSE 80; RESP 18
[2017-04-29] MEDS: IBUPROFEN 800 MG TAB PO SCH (06:00)
--- NOTE | 2017-04-29 08:06 | PD.PPDC ---
DEV TECHNICAL MGR Discharge Instruction Diagnosis Final Diagnosis: 39 weeks gestation Previous Multiparity Condition Patient Condition: Good Diet Diet: Resume Regular Diet Activity/Restrictions Activity: Normal Activity May Shower Restrictions: No Exercising No Lifting No Sexual Activity Nothing in the Vagina No [place] Wound/Drain Care Instructions Wound/Drain Care Instructions: Keep clean and dry Follow-up Follow-up with Physician: 1, Week/Weeks Return to clinic for FINGERNAIL SCULPTURER Instructions: Fever greater than 101 Worsening abdominal pain Excessive Vaginal Bleeding Unable to tolerate diet OB Instructions: Depression Surgical Instructions: Incisional Drainage Incisional Redness (Shower and wash hair as usual.) ASAEL DOZIER MD Apr 29, 2017 08:06
--- NOTE | 2017-04-29 08:06 | PD.PPDC ---
HEALTH ADMINISTRATION TEACHER Discharge Instruction Diagnosis Final Diagnosis: 39 weeks gestation Previous Multiparity Condition Patient Condition: Good Diet Diet: Resume Regular Diet Activity/Restrictions Activity: Normal Activity May Shower Restrictions: No Exercising No Lifting No Sexual Activity Nothing in the Vagina No [place] Wound/Drain Care Instructions Wound/Drain Care Instructions: Keep clean and dry Follow-up Follow-up with Physician: 1, Week/Weeks Return to clinic for RIG WELDER Instructions: Fever greater than 101 Worsening abdominal pain Excessive Vaginal Bleeding Unable to tolerate diet OB Instructions: Depression Surgical Instructions: Incisional Drainage Incisional Redness (Shower and wash hair as usual.) ASAEL DOZIER MD Apr 29, 2017 08:06
--- NOTE | 2017-04-29 08:06 | PD.PPDC ---
PATTERN ILLUSTRATOR Discharge Instruction Diagnosis Final Diagnosis: 39 weeks gestation Previous Multiparity Condition Patient Condition: Good Diet Diet: Resume Regular Diet Activity/Restrictions Activity: Normal Activity May Shower Restrictions: No Exercising No Lifting No Sexual Activity Nothing in the Vagina No [place] Wound/Drain Care Instructions Wound/Drain Care Instructions: Keep clean and dry Follow-up Follow-up with Physician: 1, Week/Weeks Return to clinic for MILEAGE CLERK Instructions: Fever greater than 101 Worsening abdominal pain Excessive Vaginal Bleeding Unable to tolerate diet OB Instructions: Depression Surgical Instructions: Incisional Drainage Incisional Redness (Shower and wash hair as usual.) ASAEL DOZIER MD Apr 29, 2017 08:06
[2017-04-29] MEDS ORDERED: DIPHTH/TET/ACEL PERTUSS (ADULT) 0.5 ML VIAL IM* ONE (09:00)
[2017-04-29 09:10] VITALS: BP 105/55; PULSE 73; RESP 18
[2017-04-29] MEDS: SENNA/DOCUSATE NA (8.6MG/50MG) TAB PO SCH (09:51)
--- NOTE | 2017-04-29 11:48 | DS ---
DATE OF ADMISSION: 04/26/2017 DATE OF DISCHARGE: FINAL DIAGNOSES: 1. Thirty-nine weeks' gestation. 2. Previous section. 3. Multiparity. SUMMARY: This is a 31-year-old female, 4, para 2, who had previous sections and al so requested sterilization at the time of the repeat . She was admitted electively at 39 we eks' gestation. She underwent section and bilateral tubal ligation under spinal anesthesia by Dr. Albert. Both mother and baby have done well. She is on her third day postop today. She is t olerating food well. And has had a normal spontaneous bowel movement. She is discharged with writt en instructions with a prescription for Percocet 40 tablets to use 1 or 2 every 6 hours p.r.n. for p ain. She was asked to make an appointment for followup in the office in 1 week. She is discharged on a regular diet in good condition. Dictated By: ASAEL RENNER/DANTE Conf#: [id number] DID#: [id number]
== END 2017-04-29 11:55 | disposition home or self-care (01) | DRG 766 ==
LOC: L-D 05:52 → PP1 12:49
PROVIDERS: ADMIT Specialist; ATTEND Specialist
PROC: 0UB70ZZ Excision of Bilateral Fallopian Tubes, Open Approach (ICD-10-PCS; 2017-04-26)
PROC: 10D00Z1 Extraction of Products of Conception, Low, Open Approach (ICD-10-PCS; principal; 2017-04-26 07:30)
DX: O34.211 Maternal care for low transverse scar from previous cesarean delivery (principal); O32.8XX0 Maternal care for other malpresentation of fetus, not applicable or unspecified; Z30.2 Encounter for sterilization; Z37.0 Single live birth; Z3A.39 39 weeks gestation of pregnancy
CPT/HCPCS: 85025; 85610; 85730; 86592; 86850; 86900; 86901; 87340; 88302; 90715; 99464; J0690; J1100; J1885; J2274; J2370; J2405; J2590; J3010; J7120

== ENCOUNTER 2019-02-22 10:35 | Emergency (ER) | payer MEDICAID, OTHER ==
[~2019-02-22] VITALS: Wt 67.9 kg
[2019-02-22 10:36] VITALS: BP 113/67; PULSE 89; RESP 18
== END 2019-02-22 14:34 | disposition home or self-care (01) ==
LOC: FTE 10:35
DX: M79.601 Pain in right arm (principal)
CPT/HCPCS: 71045; 72050; 81025; 93971; Z7502